=== PATIENT | male | born 1960 | race Caucasian/White ===

== ENCOUNTER 2019-12-08 22:19 | Inpatient (IN) ==
[2019-12-08] MEDS ORDERED: 0.9 % Sodium Chloride 1,000 ML IVC ONE (22:35)
[2019-12-08 22:51] LABS: Basophils # 0.1 K/mcL (0.0-0.2); Basophils % 0.4 %; Eosinophils # 0.1 K/mcL (0.0-0.6); Eosinophils % 1.2 %; Hematocrit 50.3 % (37.5-50.1); Hemoglobin 17.1 g/dL (12.9-16.9); Immature Granulocytes % 0.4 % (0-4); Lymphocytes # 1.7 K/mcL (0.6-4.6); Lymphocytes % 14.5 %; Mean Corpuscular Hemoglobin 30.4 pg (28.0-33.3); Mean Corpuscular Volume 89.3 fL (83.0-100.0); Mean Platelet Volume 11.2 fL (9.4-12.4); Monocytes # 0.9 K/mcL (0.0-1.3); Monocytes % 7.8 %; Neutrophils # 8.6 K/mcL (1.6-8.9); Platelet Count 211 K/mcL (140-400); Red Blood Count 5.63 M/mcL (4.19-5.50); Red Cell Distribution Width 13.3 % (11.5-14.5); Segmented Neutrophils % 75.7 %; White Blood Count 11.4 K/mcL (4.3-11.1)
[2019-12-08] MEDS: DilTIAZem 50 MG in 0.9 % Sodium Chloride 40 ML IVC SCH (23:12)
[2019-12-08 23:13] LABS: BUN/Creatinine Ratio 13 (6-26); Blood Urea Nitrogen 13 mg/dL (6-20); Calcium 9.7 mg/dL (8.6-10.3); Carbon Dioxide 28 mEq/L (23-29); Chloride 103 mEq/L (98-107); Glucose 133 mg/dL (70-105); Magnesium 1.8 mg/dL (1.6-2.6); Osmolality,Calculated 290 (280-300); Sodium 139 mEq/L (136-145); eGFR For African Americans > 60 (> 60); eGFR For Non-African Americans > 60 (> 60)
[2019-12-08 23:14] LABS: Troponin I < 0.03 ng/mL (< 0.04)
[2019-12-08] MEDS ORDERED: Isovue-370 500 ML BOTTLE IVP ONE (23:32)
[2019-12-08] MEDS ORDERED: SODIUM CHLORIDE 0.9% IVPB ONE (23:33)
[2019-12-08] MEDS ORDERED: MAGNESIUM SULFATE IVPB ONE (23:33)
[2019-12-09 00:01] LABS: Alanine Aminotransferase 31 Units/L (7-52); Albumin 4.2 g/dL (3.5-5.7); Albumin/Globulin Ratio 1.5 (1.1-2.2); Alkaline Phosphatase 56 Units/L (34-104); Aspartate Amino Transferase 23 Units/L (13-39); Bilirubin,Direct 0.1 mg/dL (0.0-0.2); Bilirubin,Indirect 0.2 mg/dL (0.0-1.0); Bilirubin,Total 0.3 mg/dL (0.3-1.0); Globulin 2.8 g/dL (2.4-3.5); Lipase 29 Units/L (11-82)
[2019-12-09] MEDS ORDERED: *HR* Digoxin 0.5 MG/2 ML AMPUL IVP ONE (00:53)
[2019-12-09] MEDS ORDERED: Apixaban 5 MG TABLET PO ONE (01:24)
[2019-12-09] MEDS ORDERED: Furosemide 20 MG/2 ML VIAL IVP ONE (02:45)
[2019-12-09] MEDS: DilTIAZem 50 MG in 0.9 % Sodium Chloride 40 ML IVC SCH (03:58)
[2019-12-09] MEDS ORDERED: *HR* LORazepam 2 MG/ML VIAL IVP PRN ×3 (04:07)
[2019-12-09 05:19] LABS: Basophils # 0.1 K/mcL (0.0-0.2); Basophils % 0.4 %; Eosinophils % 0.2 %; Hematocrit 50.3 % (37.5-50.1); Hemoglobin 17.1 g/dL (12.9-16.9); Immature Granulocytes % 0.4 % (0-4); Lymphocytes # 1.1 K/mcL (0.6-4.6); Lymphocytes % 7.8 %; Mean Corpuscular Volume 88.2 fL (83.0-100.0); Monocytes # 0.9 K/mcL (0.0-1.3); Monocytes % 6.5 %; Neutrophils # 11.5 K/mcL (1.6-8.9); Platelet Count 213 K/mcL (140-400); Red Cell Distribution Width 13.5 % (11.5-14.5); Segmented Neutrophils % 84.7 %; White Blood Count 13.6 K/mcL (4.3-11.1)
[2019-12-09 05:21] LABS: INR 1.1; Prothrombin Time 12.6 Seconds (9.4-12.1)
[2019-12-09 05:41] LABS: Alanine Aminotransferase 30 Units/L (7-52); Albumin 4.3 g/dL (3.5-5.7); Albumin/Globulin Ratio 1.6 (1.1-2.2); Alkaline Phosphatase 55 Units/L (34-104); Aspartate Amino Transferase 17 Units/L (13-39); BUN/Creatinine Ratio 13 (6-26); Bilirubin,Total 0.6 mg/dL (0.3-1.0); Blood Urea Nitrogen 11 mg/dL (6-20); Calcium 9.2 mg/dL (8.6-10.3); Carbon Dioxide 29 mEq/L (23-29); Chloride 102 mEq/L (98-107); Globulin 2.7 g/dL (2.4-3.5); Glucose 141 mg/dL (70-105); Osmolality,Calculated 290 (280-300); Potassium 4.1 mEq/L (3.5-5.1); Sodium 139 mEq/L (136-145); Troponin I < 0.03 ng/mL (< 0.04); eGFR For African Americans > 60 (> 60); eGFR For Non-African Americans > 60 (> 60)
[2019-12-09 05:54] LABS: Thyroid Stimulating Hormone 2.963 mcIU/mL (0.340-5.600)
[2019-12-09] MEDS ORDERED: *HR* Digoxin 0.5 MG/2 ML AMPUL IVP SCH (07:00)
[2019-12-09] MEDS ORDERED: Levalbuterol Neb 0.63 MG/3 ML IH PRN (07:45)
[2019-12-09] MEDS ORDERED: D5% in Water 1,000 ML IVC PRN (07:46)
[2019-12-09] MEDS ORDERED: Dextrose Gel 15 GM/37.5 ML TUBE PO PRN ×2 (07:46)
[2019-12-09] MEDS ORDERED: *HR* Dextrose 50 % in Water (Syg) 50 ML SYRINGE IVP PRN (07:46)
[2019-12-09] MEDS: Lactobacillus 1 EACH CAP.SPRINK PO SCH (08:15)
[2019-12-09] MEDS: Thiamine (B-1) 100 MG TABLET PO SCH (08:15)
[2019-12-09] MEDS: Furosemide 20 MG/2 ML VIAL IVP SCH ×2 (08:16→21:29)
[2019-12-09] MEDS: Magnesium Oxide 400 MG TABLET PO SCH ×2 (08:16→21:32)
[2019-12-09] MEDS: Apixaban 5 MG TABLET PO SCH ×2 (08:16→21:33)
[2019-12-09] MEDS: Renal Vitamin 1 CAP CAPSULE PO SCH (08:30)
[2019-12-09] MEDS: *HR* HYDROcodone/Acet 5/325 mg TABLET PO PRN (09:30)
[2019-12-09] MEDS: Doxycycline 100 MG in 0.9 % Sodium Chloride Mini Bag 100 ML IVPB SCH ×2 (09:30→21:33)
[2019-12-09] MEDS ORDERED: Perflutren Lipid Microsphere 1.3 ML in 0.9 % Sodium Chloride 8.7 ML IVP ONE (09:51)
[2019-12-09] MEDS: Insulin LISPRO 300 UNITS/3 ML VIAL SQ SCH ×2 (11:35→19:18)
[2019-12-09] MEDS: Metoprolol 100 MG TABLET PO SCH (21:32)
[2019-12-10] MEDS: Lactobacillus 1 EACH CAP.SPRINK PO SCH (08:17)
[2019-12-10] MEDS: Apixaban 5 MG TABLET PO SCH ×2 (08:18→20:06)
[2019-12-10] MEDS: Thiamine (B-1) 100 MG TABLET PO SCH (08:19)
[2019-12-10] MEDS: Metoprolol 100 MG TABLET PO SCH ×2 (08:19→20:06)
[2019-12-10] MEDS: Renal Vitamin 1 CAP CAPSULE PO SCH (08:19)
[2019-12-10] MEDS: Magnesium Oxide 400 MG TABLET PO SCH ×2 (08:19→20:05)
[2019-12-10 10:26] LABS: Hematocrit 49.6 % (37.5-50.1); Hemoglobin 16.3 g/dL (12.9-16.9); Mean Corpuscular HGB Conc 32.9 g/dL (31.6-35.5); Mean Corpuscular Hemoglobin 30.3 pg (28.0-33.3); Mean Corpuscular Volume 92.2 fL (83.0-100.0); Mean Platelet Volume 11.6 fL (9.4-12.4); Platelet Count 173 K/mcL (140-400); Red Blood Count 5.38 M/mcL (4.19-5.50); Red Cell Distribution Width 13.5 % (11.5-14.5); White Blood Count 12.4 K/mcL (4.3-11.1)
[2019-12-10] MEDS: Furosemide 20 MG/2 ML VIAL IVP SCH ×2 (10:36→20:06)
[2019-12-10] MEDS: Doxycycline 100 MG in 0.9 % Sodium Chloride Mini Bag 100 ML IVPB SCH ×2 (10:36→21:16)
[2019-12-10 10:43] LABS: BUN/Creatinine Ratio 17 (6-26); Blood Urea Nitrogen 15 mg/dL (6-20); Carbon Dioxide 28 mEq/L (23-29); Chloride 100 mEq/L (98-107); Glucose 134 mg/dL (70-105); Osmolality,Calculated 289 (280-300); Potassium 4.2 mEq/L (3.5-5.1); Sodium 138 mEq/L (136-145); eGFR For African Americans > 60 (> 60); eGFR For Non-African Americans > 60 (> 60)
[2019-12-10] MEDS ORDERED: Lidocaine Viscous Oral Soln 15 ML SOLUTION MM PRN (12:27)
[2019-12-10] MEDS ORDERED: 0.9 % Sodium Chloride 500 ML IVC ONE (12:28)
[2019-12-10] MEDS: *HR* Midazolam HCl 5 MG/5 ML VIAL IVP PRN ×3 (13:05→13:33)
[2019-12-10] MEDS: *HR* FentaNYL (PF) 100 MCG/2 ML VIAL IVP PRN ×3 (13:05→13:33)
[2019-12-10] MEDS ORDERED: *HR* Digoxin 0.25 MG TABLET PO SCH ×2 (14:00→20:00)
[2019-12-10] MEDS ORDERED: *HR* Digoxin 0.25 MG TABLET PO ONE ×2 (15:08→20:00)
[2019-12-10 23:07] LABS: ABG Base Excess 5 mEq/L (-2 to 3); ABG HCO3 30 mEq/L (21-27); ABG Oxygen Saturation 94 % (95-98); ABG PCO2 43 mmHg (35-45); ABG PH 7.45 pH Units (7.32-7.45); ABG PO2 69 mmHg (85-104); ABG TCO2 32 mEq/L (20-26)
[2019-12-11] MEDS ORDERED: *HR* Digoxin 0.25 MG TABLET PO ONE (04:00)
[2019-12-11] MEDS ORDERED: *HR* Digoxin 0.25 MG TABLET PO SCH (04:00)
[2019-12-11 04:44] LABS: Hematocrit 45.3 % (37.5-50.1); Mean Corpuscular HGB Conc 33.1 g/dL (31.6-35.5); Mean Corpuscular Hemoglobin 30.5 pg (28.0-33.3); Mean Corpuscular Volume 92.1 fL (83.0-100.0); Mean Platelet Volume 11.7 fL (9.4-12.4); Platelet Count 161 K/mcL (140-400); Red Blood Count 4.92 M/mcL (4.19-5.50); Red Cell Distribution Width 13.4 % (11.5-14.5); White Blood Count 8.9 K/mcL (4.3-11.1)
[2019-12-11 05:12] LABS: BUN/Creatinine Ratio 18 (6-26); Blood Urea Nitrogen 18 mg/dL (6-20); Calcium 8.3 mg/dL (8.6-10.3); Carbon Dioxide 28 mEq/L (23-29); Chloride 101 mEq/L (98-107); Glucose 156 mg/dL (70-105); Osmolality,Calculated 293 (280-300); Potassium 3.9 mEq/L (3.5-5.1); Sodium 139 mEq/L (136-145); eGFR For African Americans > 60 (> 60); eGFR For Non-African Americans > 60 (> 60)
[2019-12-11] MEDS: Metoprolol 100 MG TABLET PO SCH ×3 (07:57→20:55)
[2019-12-11] MEDS: Furosemide 20 MG/2 ML VIAL IVP SCH ×2 (07:57→20:55)
[2019-12-11] MEDS: Magnesium Oxide 400 MG TABLET PO SCH ×2 (07:57→20:55)
[2019-12-11] MEDS: Apixaban 5 MG TABLET PO SCH ×2 (07:57→20:55)
[2019-12-11] MEDS: Renal Vitamin 1 CAP CAPSULE PO SCH (07:57)
[2019-12-11] MEDS: Thiamine (B-1) 100 MG TABLET PO SCH (07:57)
[2019-12-11] MEDS: Lactobacillus 1 EACH CAP.SPRINK PO SCH (07:57)
[2019-12-11] MEDS: Doxycycline 100 MG in 0.9 % Sodium Chloride Mini Bag 100 ML IVPB SCH (11:44)
[2019-12-11] MEDS ORDERED: *HR* Metoprolol 5 MG/5 ML VIAL IVP ONE (18:05)
[2019-12-11] MEDS ORDERED: Amiodarone Premix 360 MG/200 ML BAG IVC ONE (18:55)
[2019-12-11] MEDS: Doxycycline 100 MG CAPSULE PO SCH (20:55)
[2019-12-12] MEDS ORDERED: *HR* Metoprolol 5 MG/5 ML VIAL IVP ONE (00:16)
[2019-12-12] MEDS: Amiodarone Premix 360 MG/200 ML BAG IVC SCH (01:55)
[2019-12-12 05:44] LABS: Hematocrit 47.9 % (37.5-50.1); Hemoglobin 15.9 g/dL (12.9-16.9); Mean Corpuscular HGB Conc 33.2 g/dL (31.6-35.5); Mean Corpuscular Hemoglobin 30.6 pg (28.0-33.3); Mean Corpuscular Volume 92.1 fL (83.0-100.0); Mean Platelet Volume 11.9 fL (9.4-12.4); Platelet Count 185 K/mcL (140-400); Red Cell Distribution Width 13.2 % (11.5-14.5)
[2019-12-12 06:08] LABS: BUN/Creatinine Ratio 16 (6-26); Blood Urea Nitrogen 15 mg/dL (6-20); Calcium 8.6 mg/dL (8.6-10.3); Carbon Dioxide 29 mEq/L (23-29); Chloride 102 mEq/L (98-107); Glucose 123 mg/dL (70-105); Osmolality,Calculated 292 (280-300); Potassium 3.7 mEq/L (3.5-5.1); Sodium 140 mEq/L (136-145); eGFR For African Americans > 60 (> 60); eGFR For Non-African Americans > 60 (> 60)
[2019-12-12] MEDS: Thiamine (B-1) 100 MG TABLET PO SCH (07:44)
[2019-12-12] MEDS: Magnesium Oxide 400 MG TABLET PO SCH ×2 (07:44→20:36)
[2019-12-12] MEDS: Lactobacillus 1 EACH CAP.SPRINK PO SCH (07:44)
[2019-12-12] MEDS: Metoprolol 100 MG TABLET PO SCH ×3 (07:44→20:34)
[2019-12-12] MEDS: Doxycycline 100 MG CAPSULE PO SCH ×2 (07:44→20:36)
[2019-12-12] MEDS: Renal Vitamin 1 CAP CAPSULE PO SCH (07:44)
[2019-12-12] MEDS: Apixaban 5 MG TABLET PO SCH ×2 (07:44→20:35)
[2019-12-12] MEDS: *HR* Digoxin 0.25 MG TABLET PO SCH (07:45)
[2019-12-12] MEDS: Furosemide 20 MG/2 ML VIAL IVP SCH (07:45)
[2019-12-13] MEDS: Amiodarone Premix 360 MG/200 ML BAG IVC SCH (01:25)
[2019-12-13 01:43] LABS: Hemoglobin 16.2 g/dL (12.9-16.9); Mean Corpuscular HGB Conc 33.8 g/dL (31.6-35.5); Mean Corpuscular Hemoglobin 30.2 pg (28.0-33.3); Mean Corpuscular Volume 89.6 fL (83.0-100.0); Mean Platelet Volume 11.6 fL (9.4-12.4); Platelet Count 193 K/mcL (140-400); Red Blood Count 5.36 M/mcL (4.19-5.50); Red Cell Distribution Width 13.3 % (11.5-14.5)
[2019-12-13 02:02] LABS: BUN/Creatinine Ratio 12 (6-26); Blood Urea Nitrogen 14 mg/dL (6-20); Calcium 8.6 mg/dL (8.6-10.3); Carbon Dioxide 31 mEq/L (23-29); Chloride 100 mEq/L (98-107); Glucose 130 mg/dL (70-105); Osmolality,Calculated 290 (280-300); Potassium 4.1 mEq/L (3.5-5.1); Sodium 139 mEq/L (136-145); eGFR For African Americans > 60 (> 60); eGFR For Non-African Americans > 60 (> 60)
[2019-12-13] MEDS: Thiamine (B-1) 100 MG TABLET PO SCH (08:58)
[2019-12-13] MEDS: Metoprolol 100 MG TABLET PO SCH (08:58)
[2019-12-13] MEDS: Doxycycline 100 MG CAPSULE PO SCH ×2 (08:58→20:55)
[2019-12-13] MEDS: Renal Vitamin 1 CAP CAPSULE PO SCH (08:58)
[2019-12-13] MEDS: Furosemide 40 MG TABLET PO SCH (08:58)
[2019-12-13] MEDS: *HR* Digoxin 0.25 MG TABLET PO SCH (08:58)
[2019-12-13] MEDS: Magnesium Oxide 400 MG TABLET PO SCH ×2 (08:58→20:55)
[2019-12-13] MEDS: Apixaban 5 MG TABLET PO SCH ×2 (08:58→20:56)
[2019-12-13] MEDS: Lactobacillus 1 EACH CAP.SPRINK PO SCH (08:58)
[2019-12-13] MEDS ORDERED: Furosemide 20 MG/2 ML VIAL IVP ONE (09:01)
[2019-12-13] MEDS ORDERED: *HR* Amiodarone 200 MG TABLET PO SCH (11:15)
[2019-12-13] MEDS ORDERED: *HR* FentaNYL (PF) 250 MCG/5 ML VIAL ONE (13:50)
[2019-12-13] MEDS ORDERED: *HR* Midazolam HCl 5 MG/5 ML VIAL IVP ONE ×2 (13:50→14:22)
[2019-12-13] MEDS: *HR* Amiodarone 200 MG TABLET PO SCH (20:55)
[2019-12-13] MEDS: Metoprolol XL (24 HR) Succ 50 MG TAB.ER.24H PO SCH (20:56)
[2019-12-14 01:29] LABS: Hematocrit 48.6 % (37.5-50.1); Mean Corpuscular HGB Conc 32.9 g/dL (31.6-35.5); Mean Corpuscular Hemoglobin 30.3 pg (28.0-33.3); Mean Platelet Volume 11.7 fL (9.4-12.4); Platelet Count 194 K/mcL (140-400); Red Blood Count 5.28 M/mcL (4.19-5.50); Red Cell Distribution Width 13.2 % (11.5-14.5); White Blood Count 8.2 K/mcL (4.3-11.1)
[2019-12-14 01:53] LABS: BUN/Creatinine Ratio 13 (6-26); Blood Urea Nitrogen 13 mg/dL (6-20); Calcium 8.7 mg/dL (8.6-10.3); Carbon Dioxide 27 mEq/L (23-29); Chloride 103 mEq/L (98-107); Glucose 113 mg/dL (70-105); Osmolality,Calculated 287 (280-300); Sodium 138 mEq/L (136-145); eGFR For African Americans > 60 (> 60); eGFR For Non-African Americans > 60 (> 60)
[2019-12-14] MEDS: Thiamine (B-1) 100 MG TABLET PO SCH (08:18)
[2019-12-14] MEDS: Lactobacillus 1 EACH CAP.SPRINK PO SCH (08:18)
[2019-12-14] MEDS: Doxycycline 100 MG CAPSULE PO SCH (08:18)
[2019-12-14] MEDS: Magnesium Oxide 400 MG TABLET PO SCH (08:18)
[2019-12-14] MEDS: Metoprolol XL (24 HR) Succ 50 MG TAB.ER.24H PO SCH (08:18)
[2019-12-14] MEDS: Renal Vitamin 1 CAP CAPSULE PO SCH (08:19)
[2019-12-14] MEDS: Apixaban 5 MG TABLET PO SCH (08:19)
[2019-12-14] MEDS: Furosemide 40 MG TABLET PO SCH (08:19)
[2019-12-14] MEDS: *HR* Amiodarone 200 MG TABLET PO SCH (08:19)
[2019-12-14] MEDS ORDERED: Regadenoson 0.4 MG/5 ML SYRINGE IVP ONE (08:33)
[2019-12-14] MEDS ORDERED: Acetaminophen 325 MG TABLET PO PRN (08:44)
[2019-12-14] MEDS: *HR* HYDROcodone/Acet 5/325 mg TABLET PO PRN ×2 (10:19→16:38)
[2019-12-14 16:24] VITALS: BP 109/74
== END 2019-12-14 19:30 | disposition home or self-care (01) | DRG 291 ==
LOC: EMEROOARM 22:19 → 2NENU 22:19 → SUATTDRO 12-09 01:55 → 2NENU 12-09 02:45 → 2NNU 12-11 20:55
PROVIDERS: ADMIT Internal Medicine; ATTEND Family Medicine